=== PATIENT | female | born 1965 | race Caucasian/White ===

== ENCOUNTER → 2019-06-02 | Outpatient (CLI) | payer BC ==
--- NOTE | 2019-06-02 12:06 | Diagnostic Imaging Report ---
INDICATION: 45 pack-year smoking history. This is a low dose screening CT performed as a baseline study. TECHNIQUE: Protocol low dose CT screening chest performed with multiplanar reconstructions. FINDINGS: There is a tiny intra or juxta-fissural nodule measuring 3 mm abutting the right minor fissure (image 122, series 2 and image 32, series 602). 2 mm nodule more medially abutting the minor fissure image 115, series 2 noted. No suspicious lung mass or dominant lung lesion. Some lingular and right middle lobe medial basilar subsegmental atelectasis and/or scarring. No findings suggestive of acute pneumonia or edema. No thoracic adenopathy. There is no aneurysm. IMPRESSION: Lung RADS category 2 benign appearing perifissural micronodules. No suspicious mass. Continued low-dose CT screening follow-up in one year's time recommended. Dictated by: Dictated on workstation # [id number]
== END ==
LOC: RAD 10:27
PROVIDERS: ATTEND Family Medicine
DX: Z12.2 Encounter for screening for malignant neoplasm of respiratory organs (principal); R91.8 Other nonspecific abnormal finding of lung field; Z87.891 Personal history of nicotine dependence